=== PATIENT | male | born 1980 | race Caucasian/White ===

== ENCOUNTER → 2024-02-01 | Outpatient (CLI) | payer SELFPAY ==
[2024-02-01 14:56] LABS: BASO # 0.1 10*3/uL (0.0-0.1); BASO % 0.8 % (0.0-1.0); EOS # 0.1 10*3/uL (0.0-0.4); EOS % 1.2 % (1.0-4.0); HEMATOCRIT 43.1 % (42.0-52.0); LYMPH # 1.8 10*3/uL (1.3-4.4); LYMPH % 16.1 % (27.0-41.0); MEAN CELL VOLUME 94.1 fl (80.0-94.0); MEAN CORPUSCULAR HGB CONC 32.9 g/dl (33.0-37.0); MEAN PLATELET VOLUME 10.1 fl (9.6-12.3); MONO # 0.7 10*3/uL (0.1-1.0); MONO % 6.4 % (3.0-9.0); NEUT # 8.4 10*3/uL (2.3-7.9); NEUT % 75.1 % (47.0-73.0); PLATELET COUNT AUTOMATED 382 10*3/uL (130-400); RED BLOOD COUNT 4.58 10*6/uL (4.50-5.90); RED CELL DISTRI WIDTH 13.2 % (0-14.5); WHITE BLOOD COUNT 11.2 10*3/uL (4.8-10.8)
[2024-02-01 17:51] LABS: BF LYMPHOCYTES 3 %; BF MACROPHAGES 6 %; BF NEUTROPHILS 91 %
[2024-02-02 09:08] LABS: HBSAG Negative (Negative); HEP B CORE AB, IGM Negative (Negative); HEPATITIS C ANTIBODY Non Reactive (Non Reactive)
[2024-02-02 12:08] LABS: CCP ANTIBODIES IGG/IGA 3 units (0-19)
[2024-02-02 14:08] LABS: ANTI-RNP ANTIBODIES <0.2 AI (0.0-0.9)
[2024-02-02 15:07] LABS: ACID FAST SPEC PROCESSING Tissue Grinding (.)
[2024-02-02 19:06] LABS: LUPUS DRVVT 37.3 sec (0.0-47.0); PTT-LA 33.9 sec (0.0-43.5)
[2024-02-02 20:07] LABS: LUPUS REFLEX INTERPRETATION Comment: (.)
== END | disposition home or self-care (01) ==
LOC: LAB 14:06
PROVIDERS: ATTEND Orthopaedic Surgery
DX: R53.83 Other fatigue (principal)